=== PATIENT | male | born 1955 | race Two or more races ===

== ENCOUNTER 2023-06-21 16:43 | Emergency (ER) | payer OTHER, SELFPAY ==
[2023-06-21 16:57] VITALS: BP 118/81
[2023-06-21 17:41] LABS: Urine Albumin Trace (Neg - Trace); Urine Bilirubin 3+ (Negative); Urine Character Slightly Cloudy (Clear); Urine Glucose Negative (Negative); Urine Ketone Negative (Negative); Urine Leukocyte 2+ (Negative); Urine Nitrite Positive (Negative); Urine Occult Blood 4+ (Negative); Urine Specific Gravity 1.025 (<1.030); Urine Urobilinogen 3+ (Neg - 1+)
[2023-06-21 17:42] LABS: Urine Color Orange
[2023-06-21 17:43] LABS: % Basophils 0.2 % (0-2); % Eosinophils 2.3 % (0-6); % Immature Granulocytes 0.2 % (0-0.5); % Lymphocytes 19.1 % (20.5-51.1); % Monocytes 9.9 % (1.7-9.3); % Neutrophils 68.3 % (42.2-75.2); Absolute Eosinophils 0.2 10^3/uL (0-0.7); Absolute Lymphocytes 1.8 10^3/uL (1.2-3.4); Absolute Monocytes 0.9 10^3/uL (0.1-0.6); Absolute Neutrophils 6.4 10^3/uL (1.4-6.5); Hematocrit 47.2 % (39.0-52.0); Hemoglobin 15.9 g/dL (13.0-18.0); Mean Corp Hgb Conc. 33.7 g/dL (33.0-37.0); Mean Platelet Volume 9.9 fL (7.4-10.4); Nucleated Red Blood Cells % 0 % (-); Platelet Count 234 10^3/uL (130-400); Red Blood Cell Count 5.13 10^6/uL (4.70-6.10); Red Cell Dist. Width 12.4 % (11.5-14.5); White Blood Cell Count 9.3 10^3/uL (4.8-10.8)
[2023-06-21 17:54] LABS: ALT (SGPT) 33 U/L (0-50); AST (SGOT) 25 U/L (17-59); Albumin 3.8 g/dl (3.5-5.0); Alkaline Phosphatase 69 U/L (38-126); Blood Urea Nitrogen 16 mg/dl (9-20); Calcium 9.1 mg/dl (8.4-10.2); Carbon Dioxide 21 mmol/L (22-30); Chloride 106 mmol/L (98-107); Glucose 115 mg/dl (70-99); Potassium 3.7 mmol/L (3.5-5.1); Sodium 134 mmol/L (135-145); Total Bilirubin 1.8 mg/dl (0.2-1.3); Total Protein 6.3 g/dl (6.3-8.2); eGFR > 60.00
[2023-06-21 18:28] LABS: Urine Bacteria Moderate (Negative); Urine Red Blood Cell 21-25 /HPF (0-2); Urine White Cell 60-70 /HPF (0-5)
--- NOTE | 2023-06-21 20:15 | ED.GENMED ---
History of Present Illness
General
Chief Complaint: Male Genito-Urinary Symptoms
Source: patient and spouse
Time Seen by Provider: 06/21/23 20:01
Travel History
Have you had any contact with someone who has COVID-19?: No
Do you have any symptoms of coronavirus? Fever > 100 degrees, chills, cough, shortness of breath, sore throat, loss of taste or smell, muscle aches, or headache?: No
History of Present Illness
History of Present Illness:
68-year-old male with past medical history of recent bladder stone, BPH, has an appointment scheduled with urology tomorrow for cystoscopy presenting to the ER for evaluation of urinary hesitancy, dysuria and worsening right flank pain over the last
24 hours. Patient was initiated on ciprofloxacin and Azo by urology yesterday which patient has been taking but without any relief. States he feels as if he has to urinate but is unable to urinate a significant amount. He denies any fevers,
chills, rigors, nausea, vomiting. He follows with urology, Dr. Rader. Patient also notes that when he has urinated he has passed a moderate amount of stone sediment
Past History
Past History
ED Past Medical History: Asthma and HTN
ED Past Surgical History: Appendectomy, Cholecystectomy, Orthopedic and Other
Social History
Tobacco: Non-smoker
Alcohol: None
Drug: None
Personal:
Living: with family
Review of Systems
Review of Systems
All Other Systems: ROS reviewed and negative except as documented in HPI and ROS
Phy Exam
Physical Exam
Physical Exam:
GENERAL: Alert , in no apparent distress but does appear mildly uncomfortable
EYE: clear conjunctiva b/l
HEAD: NCAT
ENT: o/p clr, mmm.
CARDIAC: Regular rate and rhythm .
LUNGS: Clear breath sounds bilaterally, no acute respiratory distress, no wheezes/rales/rhonchi
ABDOMEN: Soft, distended with some mild suprapubic tenderness, no r/g, no cvat
NEUROLOGICAL: Alert and oriented
SKIN: Warm and dry, skin intact.
MUSCULOSKELETAL: No edema, well perfused.
PSYCH: Normal and appropriate interaction.
Scores
Heart Failure Risk
Heart Failure Risk Score: Not Applicable
Heart Score for Chest Pain Patients
STEMI patient?: Not applicable
Withdrawal Assessment of Alcohol
Withdrawal Assessment Completed?: Not applicable
Course
Orders/Labs/Results
Orders:
Orders
06/21/23 17:21
Complete Blood Count/With Diff Urgent
Comprehensive Metabolic Panel Urgent
06/21/23 17:28
Urinalysis Reflex To Culture Urgent
Date Specimen was Collected: 06/21/23
Time Specimen was Collected: 17:02
Urine Microscopic Reflex Cult Urgent
Urine Culture Urgent
MARIAH Source: U
Specimen Description:
Date Specimen was Collected: 06/21/23
Time Specimen was Collected: 17:02
06/21/23 20:19
Isaac Placement- Treatment ONCE
Reason for insertion: Acute Retention
Abnormal Lab Results
06/21/23 06/21/23
17:21 17:28
Absolute Monos (auto) 0.9 H 10^3/uL
(0.1-0.6)
Lymphocytes % 19.1 L %
(20.5-51.1)
Monocytes % 9.9 H %
(1.7-9.3)
Sodium 134 L mmol/L
(135-145)
Carbon Dioxide 21 L mmol/L
(22-30)
Glucose 115 H mg/dl
(70-99)
Total Bilirubin 1.8 H mg/dl
(0.2-1.3)
Ur Occult Blood Reflex 4+ A
(Negative)
Urine Nitrite (Reflex) Positive A
(Negative)
Urine Bilirubin 3+ A
(Negative)
Urine Urobilinogen 3+ A
(Neg - 1+)
Leukocyte Esterase Rfl 2+ A
(Negative)
Urine RBC 21-25 A /HPF
(0-2)
Urine WBC (Reflex) 60-70 A /HPF
(0-5)
Urine Bacteria (Reflex) Moderate A
(Negative)
06/21/23 17:21
06/21/23 17:21
Vital Signs
Initial and Last Documented VS:
Initial Vital Signs
Temp Pulse Resp BP Pulse Ox
97.8 F 94 18 118/81 96
06/21/23 16:57 06/21/23 16:57 06/21/23 16:57 06/21/23 16:57 06/21/23 16:57
Last Documented Vital Signs
Temp Pulse Resp BP Pulse Ox
97.8 F 94 18 127/89 96
06/21/23 16:57 06/21/23 16:57 06/21/23 16:57 06/21/23 20:55 06/21/23 21:00
MDM/Problems Addressed
Differential Diagnosis Includes:
Obstructive, cystitis, renal/ureteral colic, pyelonephritis
MDM/Problems Addressed:
68-year-old male presenting emergency department for evaluation of urinary hesitancy, dysuria and feeling of unable to void. I performed a bedside bladder scan which showed 400 mL of urine. Patient is unable to void. Labs and urine have been
initiated in triage and urinalysis shows nitrite and leukocyte positive urine. There are increased white blood cells and red blood cells in the urinalysis. There is also stone sediment from known bladder stone. Patient had a CT scan done in
December 2022 which did not show any stones within the kidney. Will discuss with urology to help determine treatment plan and disposition.
*Pulse Oximetry
Patient hypoxic: no
*Critical Care Note
Total Time (30-74mins, 75-104mins- exclusive of procedures): Not Applicable
Data Reviewed
Review of Other/Old Records Reveals: Labs and Radiology Studies
Source: patient
Patient Management
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
Escalation/DeEscalation of care consider admission/obs:
8:20 PM: Case was discussed with on-call urologist, Dr. Escobar, and reviewed patient's labs and exam findings. Based off presentation I do not have concern for urosepsis but I do suspect UTI and acute urinary retention. Based off discussion with
urology will place a Isaac catheter for his retention and continue antibiotics that were prescribed by urology. Patient will follow-up with urology in office tomorrow as he has scheduled but may need his cystoscopy delayed as he has an active
infection
ED Attending Note
-
Portions of this chart may have been created with voice recognition software.� Occasional wrong word or��sound alike� substitutions may have occurred due to the inherent limitations of voice recognition software.
Discharge Plan
Departure
Patient Disposition: Home (Routine Discharge)
Date of Disposition: 06/21/23
Time of Disposition: 20:54
Patient with high blood pressure during this ER visit?: Yes
Discharge Problem:
Urinary tract infection, Acute urinary retention
Instructions: Urinary Retention (DC)
Referrals:
Norman Andrews MD [Family Provider] -
Interventions
Interventions:
*Risk Screen - Suicide Last Done: 06/21/23 20:56
*General Assessment Last Done: 06/21/23 20:56
*Neglect/Abuse Screening Last Done: 06/21/23 20:56
ED- Fall Risk Assessment Last Done: 06/21/23 20:56
*ED COVID-19 Vaccine History Last Done: 06/21/23 20:56
*Nursing Disposition Last Done: 06/21/23 21:15
ED-Male Genitourinary Assessment Last Done: 06/21/23 20:56
Discharge Date and Time
Discharge Date/Time: 06/21/23 21:16
Print Language: GREENLANDIC
[2023-06-21 20:55] VITALS: BP 127/89; BMI 33.3
== END 2023-06-21 21:16 | disposition home or self-care (01) ==
LOC: EMR 16:43
PROVIDERS: EMERGENCY PHYSICIAN Emergency Medicine; FAMILY PHYSICIAN Internal Medicine
DX: N39.0 Urinary tract infection, site not specified (principal); R33.8 Other retention of urine; I10 Essential (primary) hypertension; N21.0 Calculus in bladder
CPT/HCPCS: 99283; 51702; 51798; 80053; 81003; 81015; 85025; 87086

== ENCOUNTER 2023-06-28 12:06 | Inpatient (IN) | payer OTHER, SELFPAY ==
[2023-06-28] VITALS (19 sets, daily range): BP systolic 113–149; BP diastolic 69–88; BMI 32.9
[2023-06-28] MEDS: NORMOSOL-R 1000 IV (09:58)
[2023-06-28] MEDS: DILAUDID 0.5 MG IV (12:07)
--- NOTE | 2023-06-28 18:24 | PTCARENOTE ---
to floor about 1530. AOx3, RW IV capped. CBI running via 20fr Isaac, bloody small clot urine. discomfort at tip of penis. bed low, HOB elevated. orientation to room. Family brought to room. ordered regular diet.
[2023-06-28] MEDS: MOTRIN 600 MG PO (20:49)
[2023-06-29 03:19] VITALS: BP 106/67
[2023-06-29 06:00] LABS: % Basophils 0.1 % (0-2); % Eosinophils 0.2 % (0-6); % Immature Granulocytes 0.5 % (0-0.5); % Lymphocytes 11.5 % (20.5-51.1); % Monocytes 7.7 % (1.7-9.3); Absolute Immature Granulocytes 0.1 10^3/uL (0-0.05); Absolute Lymphocytes 1.8 10^3/uL (1.2-3.4); Absolute Monocytes 1.2 10^3/uL (0.1-0.6); Absolute Neutrophils 12.3 10^3/uL (1.4-6.5); Hematocrit 45.4 % (39.0-52.0); Hemoglobin 15.6 g/dL (13.0-18.0); Mean Corp Hgb Conc. 34.4 g/dL (33.0-37.0); Mean Corpuscular Hgb 31.6 pg (27.0-31.0); Mean Corpuscular Volume 92.1 fL (80.0-94.0); Mean Platelet Volume 10.1 fL (7.4-10.4); Nucleated Red Blood Cells % 0 % (-); Platelet Count 243 10^3/uL (130-400); Red Blood Cell Count 4.93 10^6/uL (4.70-6.10); Red Cell Dist. Width 12.3 % (11.5-14.5); White Blood Cell Count 15.3 10^3/uL (4.8-10.8)
[2023-06-29 06:31] LABS: Blood Urea Nitrogen 25 mg/dl (9-20); Calcium 8.9 mg/dl (8.4-10.2); Carbon Dioxide 23 mmol/L (22-30); Chloride 101 mmol/L (98-107); Estimated Creatinine Clearance 93 ml/min; Glucose 101 mg/dl (70-99); Potassium 4.3 mmol/L (3.5-5.1); Sodium 135 mmol/L (135-145); eGFR > 60.00
[2023-06-29] MEDS: SPIRIVA RESPIMAT 2.5 MCG 2 PUFF INH (07:19)
[2023-06-29] MEDS: SYMBICORT 80/4.5 MCG INHALER 2 PUFF INH (07:19)
--- NOTE | 2023-06-29 07:20 | W.PN.URO.CBU ---
Today's Communication / Plan
-
TOV this AM
Pyridium 200 mg x1
Discharge home after lunch
eRx sent (Pyridium + Bactrim)
D/w patient and spouse.
Assessment / Plan
-
Bladder stone
bulbar urethral stricture
06/27: s/p cystoscopy, urethral dilation, cystolitholapaxy
WBC elevated - likely inflammatory post-op
H/H - unchanged from pre-op labs
Cr - normal
Diagnosis
-
Date of Service: June 29, 2023
-
Patient Diagnosis:
Bladder stone
bulbar urethral stricture
Post Op Day:
06/27: s/p cystoscopy, urethral dilation, cystolitholapaxy
Subjective
-
Urine clear on low rate CBI o/n.
Isaac catheter removed @0600 => voided dark blood-tinged urine x1 already.
Eating breakfast.
Denies dysuria.
Objective
-
Vital Signs
Temp Pulse Resp BP Pulse Ox
98.2 F 77 14 129/68 98
06/29/23 07:51 06/29/23 07:55 06/29/23 07:51 06/29/23 07:55 06/29/23 07:51
Intake and Output
06/28/23 06/29/23 06/30/23
06:59 06:59 06:59
Intake Total 1030 / 1030
Output Total 6625 / 4825
Balance -3795 / -3795
Intake:
Oral fluids 630 / 630
IV fluids (Total) 400 / 400
Normosol 400 / 400
Output:
True Urine Output from CBI 4825 / 4825
Laboratory Results
06/29/23 05:08
06/29/23 05:08
Physical Exam
-
General - well developed, well nourished, no acute distress
Abdomen - soft, non-tender
Genitalia - normal
Skin - warm & dry with no rash
Neuro - AOx3, no motor deficits
Extremities - no clubbing, no cyanosis, no edema
Care Review
Data Reviewed
Discussed with: Nursing and Family
Total Time Spent with Patient (in minutes): 20
--- NOTE | 2023-06-29 07:38 | W.DS.TRANS ---
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
-
Discharge Instructions:
Sleep Apnea Risk Intermediate
Discharge Diagnosis/Procedures cystolitholapaxy, urethral stricture dilation
Diet Regular
Activity No strenuous activity
Additional Activity No strenuous activity x7 days
Driving Restrictions No driving for 24 hours
Bathing Restrictions OK to Shower
Blood Work n/a
Others Tests n/a
Instructions:
Stand-Alone Forms:
Changes to Home Medications: No
Discharge Medications:
DC Medications w/original date entered in [facility]
albuterol sulfate 90 mcg/actuation aerosol inhaler (Ventolin HFA) 2 puff inhalation 6XD PRN ASTHMA 06/26/23
fluticasone fur. 100 mcg-umeclid 62.5 mcg-vilant 25 mcg inhalat.powder (Trelegy Ellipta) 1 inh inhalation DAILY 06/26/23
losartan 100 mg tablet 100 mg PO DAILY 06/26/23
tamsulosin 0.4 mg capsule 0.4 mg PO BID 06/26/23
phenazopyridine 200 mg tablet (Pyridium) 200 mg PO [id number] PRN dysuria 4 days #8 tabs 06/29/23
sulfamethoxazole 800 mg-trimethoprim 160 mg tablet (Bactrim DS) 1 tab PO DAILY 5 days #5 tabs 06/29/23
Home Medication Changes
Pending Results: No
[2023-06-29 07:51] VITALS: BP 129/68
[2023-06-29] MEDS: COZAAR 100 MG PO (07:55)
[2023-06-29] MEDS: FLOMAX 0.400000000000000022 MG PO (07:55)
--- NOTE | 2023-06-29 10:30 | CM ---
Reviewed the chart notes and spoke with the patient and his spouse at the bedside. The patient resides with his spouse in a one story home with two steps to enter. The patient reports no DME/VN/SNF in the past. The patient confirmed his pharmacy
of choice is the [facility] [address] [facility]. The patient's spouse will provide transportation home. CM continues to be available to patient/family and is monitoring medical plan for needs at discharge.
Plan: Discharge to home when medically stable. No needs identified at this time.
[2023-06-29 13:41] VITALS: BP 139/66
== END 2023-06-29 13:44 | disposition home or self-care (01) | DRG 694 ==
LOC: 2 SOUTH 12:06
PROVIDERS: ADMITTING PHYSICIAN Surgery
PROC: 0T7D8ZZ Dilation of Urethra, Via Natural or Artificial Opening Endoscopic (ICD-10-PCS; 2023-06-28)
PROC: 0TCB8ZZ Extirpation of Matter from Bladder, Via Natural or Artificial Opening Endoscopic (ICD-10-PCS; 2023-06-28)
DX: N21.0 Calculus in bladder (principal); N40.0 Benign prostatic hyperplasia without lower urinary tract symptoms; N35.919 Unspecified urethral stricture, male, unspecified site
CPT/HCPCS: 80048; 85025; 94640

== ENCOUNTER 2023-09-05 13:27 | Inpatient (IN) | payer OTHER, SELFPAY ==
[2023-09-05] VITALS (7 sets, daily range): BP systolic 113–156; BP diastolic 72–90; BMI 34.1; BMI 33.7
[2023-09-05 11:14] LABS: % Basophils 0.3 % (0-2); % Eosinophils 2.5 % (0-6); % Immature Granulocytes 0.7 % (0-0.5); % Lymphocytes 18.7 % (20.5-51.1); % Monocytes 10.1 % (1.7-9.3); % Neutrophils 67.7 % (42.2-75.2); Absolute Eosinophils 0.3 10^3/uL (0-0.7); Absolute Immature Granulocytes 0.1 10^3/uL (0-0.05); Absolute Lymphocytes 1.9 10^3/uL (1.2-3.4); Hematocrit 42.4 % (39.0-52.0); Hemoglobin 14.4 g/dL (13.0-18.0); Mean Corpuscular Hgb 30.7 pg (27.0-31.0); Mean Corpuscular Volume 90.4 fL (80.0-94.0); Mean Platelet Volume 9.8 fL (7.4-10.4); Nucleated Red Blood Cells % 0 % (-); Platelet Count 227 10^3/uL (130-400); Red Blood Cell Count 4.69 10^6/uL (4.70-6.10); Red Cell Dist. Width 13.8 % (11.5-14.5); White Blood Cell Count 10.3 10^3/uL (4.8-10.8)
[2023-09-05 11:23] LABS: INR 1.05; PT 13.8 Sec (11.4-14.6)
[2023-09-05 11:24] LABS: ALT (SGPT) 29 U/L (0-50); APTT 28.2 Sec (23.4-35.0); AST (SGOT) 23 U/L (17-59); Albumin 3.9 g/dl (3.5-5.0); Alkaline Phosphatase 89 U/L (38-126); Blood Urea Nitrogen 27 mg/dl (9-20); Calcium 9.3 mg/dl (8.4-10.2); Carbon Dioxide 28 mmol/L (22-30); Chloride 104 mmol/L (98-107); Estimated Creatinine Clearance 81 ml/min; Glucose 100 mg/dl (70-99); Potassium 4.2 mmol/L (3.5-5.1); Sodium 139 mmol/L (135-145); Total Bilirubin 1.3 mg/dl (0.2-1.3); Total Protein 6.4 g/dl (6.3-8.2); eGFR > 60.00
--- NOTE | 2023-09-05 12:20 | ED.GENMED ---
History of Present Illness
General
Chief Complaint: Rectal Bleeding
Source: patient
Exam Limitations: none
Time Seen by Provider: 09/05/23 10:30
History of Present Illness
History of Present Illness:
68-year-old male multiple episodes bright red rectal bleeding overnight. Patient feels fine. No history of same. Patient does take Celebrex and aspirin. Recent knee replacement.
Past History
Past History
ED Past Medical History: Asthma and HTN
ED Past Surgical History: Appendectomy, Cholecystectomy, Orthopedic and Other
Social History
Tobacco: Non-smoker
Alcohol: None
Drug: None
Personal:
Living: with family
Review of Systems
Review of Systems
All Other Systems: Not applicable
Constitutional: Denies fever
ABD/GI: Denies abdominal pain or black stools
Phy Exam
Physical Exam
Physical Exam:
GENERAL: Alert and oriented in no apparent distress
EYE: Orbits normal.
NECK: Supple, no significant adenopathy.
ENT: Pharynx without erythema
CARDIAC: Regular rate and rhythm without any obvious murmurs.
LUNGS: Clear breath sounds,normal
ABDOMEN: Soft, without focal tenderness or distention stool test positive. Bright red blood
NEUROLOGICAL: Alert and oriented , grossly non-focal
SKIN: Warm and dry, no rash or lesion, no discoloration, skin intact.
MUSCULOSKELETAL: Healing postoperative knee surgery. No external hemorrhoids.
PSYCH: Normal and appropriate interaction.
Course
Orders/Labs/Results
Orders:
Orders
09/05/23
Electrocardiogram (*1) Stat
Comment: DONE EMR
09/05/23 Breakfast
Clear Liquid
At Your Request: Limited, Crib Pad Maker Required
09/05/23 10:36
Cardiac Monitoring- Treatment ONCE
IV Insert/Care/Rem.- Treatment PRN
09/05/23 11:05
Type+Screen Urgent
Complete Blood Count/With Diff Urgent
Comprehensive Metabolic Panel Urgent
PTT Urgent
Prothrombin Time Urgent
09/05/23 12:41
CBC/No Diff [Complete Blood Count/No Diff] Q8H
09/05/23 12:51
Admit/Transfer Patient As Directed
Co-Sign Provider:
Level of Care: Inpatient admission
Assign to:: Medical/Surgical
Physician / Group: Paulo
Diagnosis: Acute Lower GI bleed
Reason for Hospitalization: GI consult, monitor Hgb
Expected length of stay greater than two midnights?: Yes
ELOS- Estimated Length of Stay in days: 2
I certify the patient meets the requirements for IP care: Yes
09/05/23 12:53
Code Status As Directed
Resuscitation Status: Full Code
09/05/23 20:41
CBC/No Diff [Complete Blood Count/No Diff] Q8H
Abnormal Lab Results
09/05/23
11:05
RBC 4.69 L 10^6/uL
(4.70-6.10)
Abs Immat Gran (auto) 0.1 H 10^3/uL
(0-0.05)
Absolute Neuts (auto) 7.0 H 10^3/uL
(1.4-6.5)
Absolute Monos (auto) 1.0 H 10^3/uL
(0.1-0.6)
Immature Gran % 0.7 H %
(0-0.5)
Lymphocytes % 18.7 L %
(20.5-51.1)
Monocytes % 10.1 H %
(1.7-9.3)
BUN 27 H mg/dl
(9-20)
Glucose 100 H mg/dl
(70-99)
09/05/23 11:05
Vital Signs
Initial and Last Documented VS:
Initial Vital Signs
Temp Pulse Resp BP Pulse Ox
98.2 F 78 16 132/74 98
09/05/23 10:18 09/05/23 10:18 09/05/23 10:18 09/05/23 10:18 09/05/23 10:18
Last Documented Vital Signs
Temp Pulse Resp BP Pulse Ox
98.2 F 72 17 130/90 96
09/05/23 10:18 09/05/23 11:48 09/05/23 11:48 09/05/23 11:48 09/05/23 11:35
MDM/Problems Addressed
Differential Diagnosis Includes:
Stable lower GI bleed. However the pictures shown so significant blood loss at home. Some drop in hemoglobin. Referred to GI and hospitalist
*Critical Care Note
Total Time (30-74mins, 75-104mins- exclusive of procedures): Not Applicable
ED Attending Note
-
Portions of this chart may have been created with voice recognition software.� Occasional wrong word or��sound alike� substitutions may have occurred due to the inherent limitations of voice recognition software.
Discharge Plan
Departure
Patient Disposition: Admit
Date of Disposition: 09/05/23
Time of Disposition: 12:20
Presentation/result/management discussed w/ accepting MD/DO: Gastroenterology
Discharge Problem:
Lower GI bleed
Prescriptions:
No Action
albuterol sulfate [Ventolin HFA] 90 mcg/actuation Hfa Aerosol Inhaler
2 puff INHALATION R Q6HPRN PRN (Reason: ASTHMA)
losartan 100 mg Tablet
100 mg PO DAILY
hydrocodone-acetaminophen 5-325 mg Tablet
1 tab PO Q8HPRN PRN (Reason: knee surgery)
aspirin 81 mg Tablet,Delayed Release (Dr/Ec)
81 mg PO BID
pantoprazole [Protonix] 40 mg Tablet,Delayed Release (Dr/Ec)
40 mg PO DAILY
Trelegy Ellipta 200-62.5-25 mcg Blister With Device
1 inh INHALATION R DAILY
Referrals:
Norman Andrews MD [Family Provider] -
Interventions
Interventions:
*Risk Screen - Suicide Last Done: 09/05/23 11:10
*General Assessment Last Done: 09/05/23 11:10
*Neglect/Abuse Screening Last Done: 09/05/23 11:10
ED- Fall Risk Assessment Last Done: 09/05/23 11:35
*ED COVID-19 Vaccine History Last Done: 09/05/23 10:18
CK-Afiryn-Gksmabpwvc Assessment Last Done: 09/05/23 12:13
ED- Cardiac Assessment Last Done: 09/05/23 11:35
ED- Pulmonary Assessment Last Done: 09/05/23 11:35
Discharge Date and Time
Print Language: GHANAIAN
--- NOTE | 2023-09-05 12:27 | CON.GI ---
Consultation
-
Date/Time Consultation Performed: 09/05/23
Performing Provider: Tremayne Garcia MD
Reason for Consultation: rectal bleeding
Medical History
Chief Complaint / HPI
Chief Complaint: Rectal bleeding
History of Present Illness:
The patient is a 68-year-old male with past medical history as noted presents with bright blood per rectum. He was in his usual state of health until yesterday when he had a large episode of red blood mixed with clots and brown stool. He denies
any lightheadedness or dizziness, though had another episode this morning of blood with clots, though smaller amount. Again he denies any abdominal pain, lightheadedness or dizziness. His last bowel movement was very early this morning. He is
never had bleeding like this before. He does have history of polyps, last colonoscopy [place] around 5 years ago. Has a history of diverticulitis in the past as well, though never had any bleeding. He denies any chest pain or shortness of
breath, and overall has been feeling well. He has been on multiple aspirin daily and Celebrex for recent knee replacement. He denies any nausea, vomiting, epigastric pain or melena.
Past Medical History
Past Medical History: Asthma, HTN and Other (bladder stone, hemchromatosis)
Past Surgical History: Appendectomy, Cholecystectomy and Other (bladder stone removal, right knee replacement)
Social History
Tobacco: Non-Smoker
Alcohol: None
Family History
Family History: Reviewed & Not Pertinent
Allergies / Home Medications
Allergy/AdvReac Type Severity Reaction Status Date / Time
No Known Allergies Allergy Verified 09/05/23 10:20
�Medication �Instructions �Recorded
albuterol sulfate 90 mcg/actuation 2 puff inhalation R Q6HPRN PRN 06/26/23
aerosol inhaler (Ventolin HFA) ASTHMA
losartan 100 mg tablet 100 mg PO DAILY Blood Pressure 06/26/23
aspirin 81 mg tablet,delayed 81 mg PO BID 09/05/23
release
fluticasone fur. 200 mcg-umeclid 1 inh inhalation R DAILY 09/05/23
62.5 mcg-vilant 25 mcg
inhalat.powder (Trelegy Ellipta)
hydrocodone 5 mg-acetaminophen 325 1 tab PO Q8HPRN PRN knee surgery 09/05/23
mg tablet
pantoprazole 40 mg tablet,delayed 40 mg PO DAILY 09/05/23
release (Protonix)
Review of Systems
-
All other systems: A 12 pt ROS was Negative except as stated above in HPI
Vital Signs
Temp Pulse Resp BP Pulse Ox
98.2 F 72 17 130/90 96
09/05/23 10:18 09/05/23 11:48 09/05/23 11:48 09/05/23 11:48 09/05/23 11:35
Physical Exam
Exam
General: NAD
HEENT: MMM, anicteric, no lymphadenopathy
Heart: Regular, no murmurs
Lungs: CTA bilaterally
Abdomen: normal bowel sounds, soft, no tenderness, no rebound or guarding, no masses, bruits or ascites
Extremeties: no edema, right knee scar
Skin: no rashes
Results
WBC 10.3 10^3/uL (4.8-10.8) 09/05/23 11:05
Hgb 14.4 g/dL (13.0-18.0) 09/05/23 11:05
Hct 42.4 % (39.0-52.0) 09/05/23 11:05
MCV 90.4 fL (80.0-94.0) 09/05/23 11:05
Plt Count 227 10^3/uL (130-400) 09/05/23 11:05
Absolute Neuts (auto) 7.0 10^3/uL (1.4-6.5) H 09/05/23 11:05
PT 13.8 Sec (11.4-14.6) 09/05/23 11:05
INR 1.05 09/05/23 11:05
APTT 28.2 Sec (23.4-35.0) 09/05/23 11:05
Sodium 139 mmol/L (135-145) 09/05/23 11:05
Potassium 4.2 mmol/L (3.5-5.1) 09/05/23 11:05
Chloride 104 mmol/L (98-107) 09/05/23 11:05
Carbon Dioxide 28 mmol/L (22-30) 09/05/23 11:05
BUN 27 mg/dl (9-20) H 09/05/23 11:05
Creatinine 0.9 mg/dL (0.7-1.3) 09/05/23 11:05
Calcium 9.3 mg/dl (8.4-10.2) 09/05/23 11:05
Total Bilirubin 1.3 mg/dl (0.2-1.3) 09/05/23 11:05
AST 23 U/L (17-59) 09/05/23 11:05
ALT 29 U/L (0-50) 09/05/23 11:05
Alkaline Phosphatase 89 U/L (38-126) 09/05/23 11:05
Diagnostic Image Results:
12/2022 CT:
IMPRESSION:
1. Findings suggesting chronic mesenteric panniculitis.
2. No renal/ureteral calculi or hydronephrosis.
3. Dependent urinary bladder calculi as described.
Prior GI Procedures:
EGD:
Colonoscopy:
Assessment / Plan
-
1. Acute GI bleed: Likely diverticular given presentation, remains hemodynamically stable, last episode earlier this morning unless overall, in the setting of aspirin twice daily and Celebrex post knee replacement. Again, there were no signs of
brisk active bleeding now. Other etiologies including malignancy, angiectasia or upper GI bleed seem very unlikely given this presentation. At this point we will continue observation overnight, continue to trend hemoglobin, clear liquid diet. If
signs of brisk active bleeding then we will do CT angiogram. If remains stable and no significant bleeding that is okay to DC tomorrow, to follow-up with his primary oil burner technician for colonoscopy as an outpatient.
-
-
Thank you for consultation and allowing me to participate in the patient's care. Please call the escalator constructor GI physician during the after hours with any questions or concerns.
--- NOTE | 2023-09-05 12:54 | HPS.HSE ---
Family Physician
-
Family Physician: Norman Andrews
Chief Complaint
-
Rectal bleeding
History of Present Illness
68-year-old male brought in by family for evaluation of rectal bleeding. Had 1 episode last night and another episode this morning. Denies any abdominal pain.
Has been on twice daily low-dose aspirin for VTE prophylaxis after a recent right knee replacement 3 weeks ago. Is still on Celebrex daily for osteoarthritis.
Denies history of bleeding in the past.
Last colonoscopy was approximately 3 years ago. History of colon polyps. No history of EGD.
Baseline hemoglobin around 16-17 due to hemochromatosis. Last phlebotomy was 4 months ago.
Medical History
Past Medical History
Past Medical History: Reports Other
Additional Past Medical History:
BPH
Essential hypertension
Mild persistent asthma
Hemochromatosis
Osteoarthritis
Nephrolithiasis
Past Surgical History: Reports Appendectomy, Cholecystectomy and Orthopedic
Additional Past Surgical History:
Bladder stone removal
Social History
Tobacco: Former Smoker
Alcohol: Daily
Drug: None
Personal:
Living: With Family
Family History
Family History: Not pertinent
Allergies / Home Medications
Allergies reflects when Allergies were last updated in [facility]
Home Medications with original date entered in [facility]
Allergy/Medication List:
Allergies
Allergy/AdvReac Type Severity Reaction Status Date / Time
No Known Allergies Allergy Verified 09/05/23 10:20
Home Medications
albuterol sulfate 90 mcg/actuation aerosol inhaler (Ventolin HFA) 2 puff inhalation R Q6HPRN PRN ASTHMA 06/26/23
losartan 100 mg tablet 100 mg PO DAILY Blood Pressure 06/26/23
aspirin 81 mg tablet,delayed release 81 mg PO BID 09/05/23
fluticasone fur. 200 mcg-umeclid 62.5 mcg-vilant 25 mcg inhalat.powder (Trelegy Ellipta) 1 inh inhalation R DAILY 09/05/23
hydrocodone 5 mg-acetaminophen 325 mg tablet 1 tab PO Q8HPRN PRN knee surgery 09/05/23
pantoprazole 40 mg tablet,delayed release (Protonix) 40 mg PO DAILY 09/05/23
Review of Systems
-
Unable to obtain full review of systems at this time due to: Language Barrier
History Source: Patient and Family
A 12 point ROS was completed and negative except as noted: Yes
Abdomen/GI: Reports Bloody Stools; Denies Abdominal Pain
Physical Exam
Vital Signs
Vital Signs
Temp Pulse Resp BP Pulse Ox
98.2 F 72 17 130/90 96
09/05/23 10:18 09/05/23 11:48 09/05/23 11:48 09/05/23 11:48 09/05/23 11:35
Physical Exam
General: Well Developed, Well Nourished, No Apparent Distress and Comfortable
HEENT: NormoCephalic, Anicteric and Moist mucous membranes
Respiratory: Clear
Cardiac: S1/S2 and Regular Rhythm
GI: Soft, Non Tender and Non Distended
Genito-urinary: Deferred by me
Musculoskeletal: No Clubbing, No Cyanosis and No Edema
Skin: Warm and Dry
Neuro: AO x 3
Hematologic/Lymphatic: No Lymphadenopathy
Psych: Calm
Laboratory Results
-
09/05/23 11:05
Laboratory Results
PT 13.8 Sec (11.4-14.6) 09/05/23 11:05
INR 1.05 09/05/23 11:05
APTT 28.2 Sec (23.4-35.0) 09/05/23 11:05
Total Bilirubin 1.3 mg/dl (0.2-1.3) 09/05/23 11:05
AST 23 U/L (17-59) 09/05/23 11:05
ALT 29 U/L (0-50) 09/05/23 11:05
Alkaline Phosphatase 89 U/L (38-126) 09/05/23 11:05
Impression/Plan
-
Acute lower GI bleed -painless bleeding. Most likely due to diverticulosis. Other differential includes malignancy, angiectasia, etc.
GI bleeding likely exacerbated by ongoing use of daily aspirin and Celebrex. Hold NSAIDs.
Admit to [facility]. Consult gastroenterology. Hemodynamically stable. Clear liquid diet. Monitor hemoglobin.
If active GI bleed noted clinically will need CT angiogram.
Hemochromatosis -baseline hemoglobin 16-17, currently 14. Monitor.
Essential hypertension -stable.
Asthma without exacerbation -suspect underlying moderate persistent asthma. Continue inhalers.
Obesity due to excess calories
Full code
Family updated at the bedside.
[2023-09-05] MEDS: NORCO 5/325 1 TABLET PO (14:06)
[2023-09-05 14:21] LABS: Hematocrit 41.1 % (39.0-52.0); Hemoglobin 14.1 g/dL (13.0-18.0); Mean Corp Hgb Conc. 34.3 g/dL (33.0-37.0); Mean Corpuscular Hgb 30.8 pg (27.0-31.0); Mean Corpuscular Volume 89.7 fL (80.0-94.0); Mean Platelet Volume 9.9 fL (7.4-10.4); Platelet Count 219 10^3/uL (130-400); Red Blood Cell Count 4.58 10^6/uL (4.70-6.10); Red Cell Dist. Width 13.8 % (11.5-14.5); White Blood Cell Count 9.9 10^3/uL (4.8-10.8)
[2023-09-05] MEDS: ADVAIR HFA 115/21 MCG INHALER 2 PUFF INH (19:35)
[2023-09-05 21:02] LABS: Hematocrit 37.8 % (39.0-52.0); Mean Corp Hgb Conc. 34.4 g/dL (33.0-37.0); Mean Corpuscular Hgb 30.6 pg (27.0-31.0); Mean Corpuscular Volume 88.9 fL (80.0-94.0); Mean Platelet Volume 9.7 fL (7.4-10.4); Platelet Count 205 10^3/uL (130-400); Red Blood Cell Count 4.25 10^6/uL (4.70-6.10); Red Cell Dist. Width 13.8 % (11.5-14.5); White Blood Cell Count 8.5 10^3/uL (4.8-10.8)
--- NOTE | 2023-09-06 06:53 | W.PN.GI.CBS2 ---
Today's Communication / Plan
-
Please see assessment and plan for details.
Assessment / Plan
-
1. Acute GI bleed: Likely diverticular given presentation, hemoglobin and hemodynamics stable overnight, only 1 small blood-tinged stool, overall much improved. At this point will await morning hemoglobin, if remains stable then will advance diet
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
Subjective
Subjective
Date of Service: September 06, 2023
Patient with 1 episode of blood-tinged stool, though much less than previous, no lightheadedness or dizziness, hemoglobin overall stable overnight.
Objective
Data Reviewed
Laboratory Data:
Laboratory Results
09/05/23 20:57
09/05/23 11:05
Laboratory Results
PT 13.8 Sec (11.4-14.6) 09/05/23 11:05
INR 1.05 09/05/23 11:05
APTT 28.2 Sec (23.4-35.0) 09/05/23 11:05
Total Bilirubin 1.3 mg/dl (0.2-1.3) 09/05/23 11:05
AST 23 U/L (17-59) 09/05/23 11:05
ALT 29 U/L (0-50) 09/05/23 11:05
Alkaline Phosphatase 89 U/L (38-126) 09/05/23 11:05
Vital Signs and I&O:
Vital Signs
Temp Pulse Resp BP Pulse Ox
98.7 F 67 18 119/81 97
09/05/23 23:55 09/05/23 23:55 09/05/23 23:55 09/05/23 23:55 09/05/23 23:55
I&O
09/04/23 09/05/23 09/06/23
06:59 06:59 06:59
Intake Total 660 / 660
Output Total 300 / 300
Balance 360 / 360
Physical Exam
Physical Exam
General: NAD
Abdomen: normal bowel sounds, soft, no tenderness, no masses or bruits, no ascites
[2023-09-06 07:20] VITALS: BP 135/75
[2023-09-06] MEDS: SPIRIVA RESPIMAT 2.5 MCG 2 PUFF INH (07:39)
[2023-09-06] MEDS: ADVAIR HFA 115/21 MCG INHALER 2 PUFF INH (07:39)
[2023-09-06] MEDS: COZAAR 100 MG PO (08:40)
[2023-09-06] MEDS: PROTONIX 40 MG PO (09:43)
[2023-09-06 10:08] LABS: Hematocrit 40.3 % (39.0-52.0); Hemoglobin 13.9 g/dL (13.0-18.0); Mean Corp Hgb Conc. 34.5 g/dL (33.0-37.0); Mean Corpuscular Hgb 30.6 pg (27.0-31.0); Mean Corpuscular Volume 88.8 fL (80.0-94.0); Mean Platelet Volume 9.9 fL (7.4-10.4); Platelet Count 219 10^3/uL (130-400); Red Blood Cell Count 4.54 10^6/uL (4.70-6.10); Red Cell Dist. Width 13.7 % (11.5-14.5); White Blood Cell Count 9.3 10^3/uL (4.8-10.8)
--- NOTE | 2023-09-06 10:31 | W.PN.HOSP.TC ---
Addendum entered and electronically signed by Ayush Bates DO 09/06/23 12:46:
CTA negative for active bleeding. Does show numerous diverticuli and I suspect the GI bleed was related to diverticulosis.
Discussed with gastroenterology, advance diet to regular food and if stable can discharge later today.
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
Updated daughter Roxanna on the phone. All questions answered.
Original Note:
Today's Communication/Plan
-
CTA
Monitor hemoglobin
Assessment / Plan
Assessment / Plan
Gen-AAOx3, NAD, obese
HEENT-NC, AT, anicteric, clear oral mm
Neck-supple
CV-reg, no M, +S1/S2
Lungs-clear B/L
Abd-soft, NT, ND
Ext-no edema
Musculoskeletal-no cyanosis, clubbing
Skin-warm and dry
Neuro-grossly non-focal
Psych-calm, cooperative
Acute lower GI bleed -painless bleeding. Most likely due to diverticulosis. Other differential includes malignancy, angiectasia, etc.
GI bleeding likely exacerbated by ongoing use of daily aspirin and Celebrex. Hold NSAIDs.
Remains hemodynamically stable today but did have 3 more bloody bowel movements this morning. Will discuss with GI regarding CT scanning.
Hemochromatosis -baseline hemoglobin 16-17, currently 13.9 this morning.
Essential hypertension -stable.
Asthma without exacerbation -suspect underlying moderate persistent asthma. Continue inhalers.
Obesity due to excess calories
Full code
Anticipated Discharge: 24 - 48 hours
Subjective/Interval History
-
Date of Service: September 06, 2023
Patient seen and examined. Complaining of ongoing bleeding. Nursing relates he had 3 bloody bowel movements this morning. Denies significant abdominal pain.
Objective Data
-
Labs:
Laboratory Results
09/06/23
09:39
WBC 9.3
Hgb 13.9
Hct 40.3
Plt Count 219
Vital Signs:
Vital Signs
Temp Pulse Resp BP Pulse Ox
98.6 F 68 16 135/75 97
09/06/23 07:20 09/06/23 08:40 09/06/23 07:41 09/06/23 08:40 09/06/23 07:41
I&O
09/05/23 09/06/23 09/07/23
06:59 06:59 06:59
Intake Total 660 / 660
Output Total 300 / 300
Balance 360 / 360
Review of Systems
-
History Source: Patient
All other systems: Reviewed and negative
--- NOTE | 2023-09-06 12:48 | W.DS.TRANS ---
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
-
Discharge Instructions:
Discharge Diagnosis/Procedures Lower GI bleed, diverticulosis
Diet Low Residue
Activity As tolerated
Driving Restrictions As prior to admission
Bathing Restrictions None
Instructions:
Stand-Alone Forms:
Changes to Home Medications: No
Discharge Medications:
DC Medications w/original date entered in [facility]
albuterol sulfate 90 mcg/actuation aerosol inhaler (Ventolin HFA) 2 puff inhalation R Q6HPRN PRN ASTHMA 06/26/23
losartan 100 mg tablet 100 mg PO DAILY Blood Pressure 06/26/23
aspirin 81 mg tablet,delayed release 81 mg PO BID Blood Clot Prevention/Tx 09/05/23
fluticasone fur. 200 mcg-umeclid 62.5 mcg-vilant 25 mcg inhalat.powder (Trelegy Ellipta) 1 inh inhalation R DAILY Lung/Breathing Issues 09/05/23
hydrocodone 5 mg-acetaminophen 325 mg tablet 1 tab PO Q8HPRN PRN knee surgery 09/05/23
pantoprazole 40 mg tablet,delayed release (Protonix) 40 mg PO DAILY Gastrointestinal Issue 09/05/23
Home Medication Changes
Pending Results: No
--- NOTE | 2023-09-06 13:02 | CM ---
CM reviewed chart and spoke with patient and his spouse at the bedside. The patient resides with his spouse in a one story home with two steps to enter. The patient reports no DME/VN/SNF in the past. The patient's spouse will provide
transportation home with anticipated discharge today.
Plan: Discharge to home when medically stable. No needs identified at this time.
PCP: Dr. Andrews
[facility]
[2023-09-06 15:15] VITALS: BP 119/64
== END 2023-09-06 16:28 | disposition home or self-care (01) | DRG 378 ==
LOC: 4 EAST ACU 13:27
PROVIDERS: ADMITTING PHYSICIAN Hospitalist; CONSULT PHYSICIAN Internal Medicine Gastroenterology; EMERGENCY PHYSICIAN Emergency Medicine; FAMILY PHYSICIAN Internal Medicine
DX: K57.31 Diverticulosis of large intestine without perforation or abscess with bleeding (principal); D68.32 Hemorrhagic disorder due to extrinsic circulating anticoagulants; E83.119 Hemochromatosis, unspecified; I10 Essential (primary) hypertension; N40.0 Benign prostatic hyperplasia without lower urinary tract symptoms; J45.30 Mild persistent asthma, uncomplicated; T39.015A Adverse effect of aspirin, initial encounter; T39.395A Adverse effect of other nonsteroidal anti-inflammatory drugs [NSAID], initial encounter; E66.09 Other obesity due to excess calories; M19.90 Unspecified osteoarthritis, unspecified site; Z96.651 Presence of right artificial knee joint; Z68.34 Body mass index [BMI] 34.0-34.9, adult; Z86.010 Personal history of colon polyps; Z87.891 Personal history of nicotine dependence; Z79.82 Long term (current) use of aspirin
CPT/HCPCS: 74174; 80053; 85025; 85027; 85610; 85730; 86850; 86900; 86901; 93005; 94640; 99284; Q9967

== ENCOUNTER 2025-02-13 15:55 | Emergency (ER) | payer OTHER, SELFPAY ==
[2025-02-13 16:26] VITALS: BP 115/76
[2025-02-13 16:50] LABS: Hematocrit 48.8 % (39.0-52.0); Hemoglobin 16.5 g/dL (13.0-18.0); Mean Corp Hgb Conc. 33.8 g/dL (33.0-37.0); Mean Corpuscular Volume 93.3 fL (80.0-94.0); Nucleated Red Blood Cells % 0 % (-); Platelet Count 228 10^3/uL (130-400); Red Cell Dist. Width 13.2 % (11.5-14.5)
[2025-02-13 17:06] LABS: ALT (SGPT) 33 U/L (0-50); AST (SGOT) 22 U/L (17-59); Albumin 4.1 g/dl (3.5-5.0); Alkaline Phosphatase 58 U/L (38-126); Blood Urea Nitrogen 20 mg/dl (9-20); Calcium 9.1 mg/dl (8.4-10.2); Carbon Dioxide 30 mmol/L (22-30); Chloride 104 mmol/L (98-107); Glucose 86 mg/dl (70-99); Lipase 56 U/L (23-300); Potassium 4.8 mmol/L (3.5-5.1); Sodium 136 mmol/L (135-145); Total Protein 6.8 g/dl (6.3-8.2); eGFR > 60.00
--- NOTE | 2025-02-13 18:30 | ED.GENMED ---
History of Present Illness
General
Chief Complaint: Abdominal Symptoms
Source: patient and spouse
Exam Limitations: none
Time Seen by Provider: 02/13/25 18:24
Nursing documentation reviewed up to this point in time: agreed with
History of Present Illness
History of Present Illness:
Patient to the emergency department for evaluation of lower abdominal pain. Symptoms started approximately 3 days ago. He denies fever/chills. He denies nausea and vomiting. Reports diarrhea. States he has had diverticulitis in the past and
that his symptoms today are similar. Brought to the emergency department by spouse for evaluation.
Past History
Past History
ED Past Medical History: Asthma, HTN and Other (BPH)
ED Past Surgical History: Appendectomy, Cholecystectomy, Orthopedic and Other
Social History
Tobacco: Non-smoker
Alcohol: None
Drug: None
Personal:
Living: with family
Review of Systems
Review of Systems
Allergies reviewed?: Yes
All Other Systems: ROS reviewed and negative except as documented in HPI and ROS
Constitutional: Reports no symptoms
EENT: Reports no symptoms
Respiratory: Reports no symptoms
Cardiac: Reports no symptoms
ABD/GI: Reports abdominal pain (lower abd. pain) and diarrhea
: Reports no symptoms
Musculoskeletal: Reports no symptoms
Skin: Reports no symptoms
Neurological: Reports no symptoms
Psychiatric: Reports no symptoms
Phy Exam
General Physical Exam
General Presentation: mild distress
General age: appears stated age
General Skin: warm and dry
General Habitus: normal
General Mental: alert
Cardiovascular Exam
Cardiovascular Exam: regular rate/rhythm
Gastrointestinal Exam
Gastrointestinal Exam: normal bowel sounds, soft, no organomegaly, no pulsatile mass and non distended
Palpation: left upper quadrant: No tenderness, left lower quadrant: Moderate tenderness, right upper quadrant: No tenderness and right lower quadrant: Moderate tenderness
Musculoskeletal Exam
Musculoskeletal Exam: full ROM and neuro vasc intact
Skin Exam
Skin Exam: normal color, warm/dry and no rash
Psychiatric Exam
Psychiatric Exam: normal mood/affect
Course
Orders/Labs/Results
Orders:
Orders
02/13/25 16:36
CMP [Comprehensive Metabolic Panel] Urgent
Complete Blood Count/With Diff Urgent
Lipase Urgent
02/13/25 18:30
CT Abd/pelvis W Iv Cont Urgent
Comment:
Reason For Exam: lower abd. pain
02/13/25 18:58
Urinalysis Reflex To Culture Urgent
Date Specimen was Collected: 02/13/25
Time Specimen was Collected: 18:56
Urine Microscopic Reflex Cult Urgent
02/13/25 20:42
Amoxicillin 875 mg/Clav 125 mg [Augmentin 875 mg/125 mg] 1 tablet PO NOW STA
Abnormal Lab Results
02/13/25 02/13/25
16:36 18:58
MCH 31.5 H pg
(27.0-31.0)
Absolute Monos (auto) 0.9 H 10^3/uL
(0.1-0.6)
Monocytes % 11.3 H %
(1.7-9.3)
Ur Occult Blood Reflex 1+ A
(Negative)
02/13/25 16:36
02/13/25 16:36
Vital Signs
Initial and Last Documented VS:
Initial Vital Signs
Temp Pulse Resp BP Pulse Ox
98.2 F 65 18 115/76 98
02/13/25 16:26 02/13/25 16:26 02/13/25 16:26 02/13/25 16:26 02/13/25 16:26
Last Documented Vital Signs
Temp Pulse Resp BP Pulse Ox
98.2 F 65 18 115/76 98
02/13/25 16:26 02/13/25 16:26 02/13/25 16:26 02/13/25 16:26 02/13/25 18:33
*Radiology
Radiology exam reviewed: radiology read reviewed
*Pulse Oximetry
SaO2: 98
Oxygen Mode of Delivery: Room air
Patient hypoxic: no
*Critical Care Note
Total Time (30-74mins, 75-104mins- exclusive of procedures): Not Applicable
Update Note
Update Note:
Patient to emergency department with complaint of lower abdominal pain. Symptoms started approximately 3 days ago. He denies fever/chills, nausea, vomiting. Reports several episodes of diarrhea. Vital signs are stable, he remains afebrile. Labs
reviewed. CBC, CMP, UA all without concerning findings. CT examination reveals mild acute uncomplicated sigmoid diverticulitis. Incidental finding of a small hypodense lower pole left renal lesion. Discussed this finding with patient and spouse.
He will follow-up with his urologist for further evaluation and to schedule follow-up MRI for this lesion. He will be discharged home. he was given instructions on signs and symptoms to return to the emergency department and he is agreeable to
this plan
ED Attending Note
-
Portions of this chart may have been created with voice recognition software.� Occasional wrong word or��sound alike� substitutions may have occurred due to the inherent limitations of voice recognition software.
Discharge Plan
Departure
Patient Disposition: Home (Routine Discharge)
Date of Disposition: 02/13/25
Time of Disposition: 20:43
Patient with high blood pressure during this ER visit?: No
Condition: Good
Covid-19: Not Applicable
Discharge Problem:
Diverticulitis
Instructions: Clear Liquid Diet, Diverticulitis (DC)
Prescriptions:
New
amoxicillin-pot clavulanate 875-125 mg tablet
1 tab PO BID Qty: 20 0RF
No Action
albuterol sulfate [Ventolin HFA] 90 mcg/actuation Hfa Aerosol Inhaler
2 puff INHALATION R Q6HPRN PRN (Reason: ASTHMA)
losartan 100 mg Tablet
100 mg PO DAILY
hydrocodone-acetaminophen 5-325 mg Tablet
1 tab PO Q8HPRN PRN (Reason: knee surgery)
aspirin 81 mg Tablet,Delayed Release (Dr/Ec)
81 mg PO BID
pantoprazole [Protonix] 40 mg Tablet,Delayed Release (Dr/Ec)
40 mg PO DAILY
Trelegy Ellipta 200-62.5-25 mcg Blister With Device
1 inh INHALATION R DAILY
Referrals:
Norman Andrews MD [Family Provider, Internal Medicine]
Activity Restrictions/Additional Instructions:
Return to the emergency department immediately for fever/chills, increasing pain, vomiting, or for any further concerns.
As we discussed, your CT evaluation reveals a small lesion on the left kidney, possibly a cyst. It is recommended that you have a follow-up MRI in approximately 6 months to reevaluate. Please follow-up with your urologist for further evaluation of
this lesion and to schedule this appointment.
Interventions
Interventions:
*Risk Screen - Suicide Last Done: 02/13/25 16:26
*Neglect/Abuse Screening Last Done: 02/13/25 16:26
*ED COVID-19 Vaccine History Last Done: 02/13/25 16:26
*ED Influenza Vaccine History Last Done: 02/13/25 16:26
Discharge Date and Time
Print Language: UKRAINIAN
[2025-02-13 19:04] LABS: Urine Character Clear (Clear)
[2025-02-13 19:37] LABS: Urine Red Blood Cell 0-2 /HPF (0-2); Urine Squamous Cell 0-2 /LPF (Few); Urine White Cell 0-2 /HPF (0-5)
[2025-02-13] MEDS: AUGMENTIN 875 MG/125 MG 1 TABLET PO (20:49)
== END 2025-02-13 20:56 | disposition home or self-care (01) ==
LOC: EMR 15:55
PROVIDERS: Emergency Medicine; Nurse Practitioner; EMERGENCY PHYSICIAN Student in an Organized Health Care Education/Training Program; FAMILY PHYSICIAN Internal Medicine
DX: K57.32 Diverticulitis of large intestine without perforation or abscess without bleeding (principal); I10 Essential (primary) hypertension; J45.909 Unspecified asthma, uncomplicated; Z90.49 Acquired absence of other specified parts of digestive tract; N28.9 Disorder of kidney and ureter, unspecified; N40.0 Benign prostatic hyperplasia without lower urinary tract symptoms
CPT/HCPCS: 99284; 74177; 80053; 81003; 81015; 83690; 85025; Q9967